=== PATIENT | female | born 2000 ===

== ENCOUNTER 2024-04-13 10:38 | Emergency (ER) | payer OTHER ==
[2024-04-13] MEDS ORDERED: KETOROLAC 15 MG/ML 1 ML VIAL ONE (12:07)
[2024-04-13] MEDS ORDERED: HYDROCORTISONE 1% CREAM 30 GM TUBE TOPICAL ONE (13:24)
== END 2024-04-13 13:25 | disposition home or self-care (01) ==
LOC: EC 10:38
DX: L30.9 Dermatitis, unspecified (principal)
CPT/HCPCS: 99282

== ENCOUNTER 2024-09-14 22:11 | Emergency (ER) | payer OTHER ==
[2024-09-14 22:23] VITALS: BP 134/74; PULSE 74; RESP 16; TEMP 98
[2024-09-14] MEDS ORDERED: cefTRIAXone 1,000 MG VIAL (IM USE) IM STA (22:55)
--- NOTE | 2024-09-14 23:01 | ED ---
Female Urogenital HPI - General Chief complaint: Urogenital Stated complaint: Abd Pain Time Seen by Provider: 09/14/24 22:31 Source: patient, RN notes reviewed Mode of arrival: ambulatory Limitations: no limitations - History of Present Illness Initial comments: 23-year-old female presents for STD testing. Admits to new sexual partner recently. States today she noticed a foul vaginal odor and a thin white discharge. Denies dysuria, frequency, urgency, suprapubic pain. Denies abdominal pain or fevers. Tolerating orals well. Last menstrual period 08/21/2024. Last Menstrual Period: 08/21/24 - Related Data Allergies Allergy/AdvReac Type Severity Reaction Status Date / Time latex Allergy Rash/Hives Verified 09/14/24 22:20 Review of Systems ROS Statement: Those systems with pertinent positive or pertinent negative responses have been documented in the HPI. ROS Other: All systems not noted in ROS Statement are negative. Past Medical History Past Medical History: No Reported History History of Any Multi-Drug Resistant Organisms: None Reported Past Surgical History: No Surgical Hx Reported Past Psychological History: No Psychological Hx Reported Smoking Status: Never smoker Past Alcohol Use History: None Reported Past Drug Use History: None Reported General Exam Limitations: no limitations General appearance: alert, in no apparent distress Head exam: Present: atraumatic, normocephalic, normal inspection GI/Abdominal exam: Present: soft, normal bowel sounds. Absent: distended, tenderness, guarding, rebound, rigid Back exam: Absent: CVA tenderness (R), CVA tenderness (L) Neurological exam: Present: alert, oriented X3 Psychiatric exam: Present: normal affect, normal mood Skin exam: Present: warm, dry, intact, normal color. Absent: rash Course Vital Signs 09/14/24 22:20 Temperature 98.0 F Pulse Rate 74 Respiratory 16 Rate Blood Pressure 134/74 O2 Sat by Pulse 100 Oximetry Medical Decision Making - Medical Decision Making Was pt. sent in by a medical professional or institution (VICKY Medeiros, W[employer]ING [employer]ACHINE [employer]PER[employer]ISTANCE, urgent care, hospital, or half-way...) When possible be specific @ -No Did you speak to anyone other than the patient for history (EMS, parent, family, police, friend...)? What history was obtained from this source @ -No Did you review nursing and triage notes (agree or disagree)? Why? @ -I reviewed and agree with nursing and triage notes Were old charts reviewed (outside hosp., previous admission, EMS record, old EKG, old radiological studies, urgent care reports/EKG's, half-way records)? Report findings @ -No old charts were reviewed Differential Diagnosis (chest pain, altered mental status, abdominal pain women, abdominal pain men, vaginal bleeding, weakness, fever, dyspnea, syncope, headache, dizziness, GI bleed, back pain, seizure, CVA, palpatations, mental health, musculoskeletal)? @ -STD, BV bacterial vaginosis, vaginal candidiasis EKG interpreted by me (3pts min.). @ -None X-rays interpreted by me (1pt min.). @ -None done CT interpreted by me (1pt min.). @ -None done U/S interpreted by me (1pt. min.). @ -None done What testing was considered but not performed or refused? (CT, X-rays, U/S, labs)? Why? @ -Patient eloped before urinalysis and urine returned What meds were considered but not given or refused? Why? @ -Eloped before Rocephin was given Did you discuss the management of the patient with other professionals (professionals i.e. , PA, W[employer]ING MACHINE OPERATOR [employer]ISTANCE, lab, RT, psych nurse, licensed clinical social worker, dial brusher, teacher, customs and immigration officer, case picker)? Give summary @ -No Was smoking cessation discussed for >3mins.? @ -No Was critical care preformed (if so, how long)? @ -No Were there social determinants of health that impacted care today? How? (Homelessness, low income, unemployed, alcoholism, drug addiction, transportation, low edu. Level, literacy, decrease access to med. care, detention, rehab)? @ -No Was there de-escalation of care discussed even if they declined (Discuss DNR or withdrawal of care, Hospice)? DNR status @ -No What co-morbidities impacted this encounter? (DM, HTN, Smoking, COPD, CAD, Cancer, CVA, ARF, Chemo, Hep., AIDS, mental health diagnosis, sleep apnea, morbid obesity)? @ -None Was patient admitted / discharged? Hospital course, mention meds given and route, prescriptions, significant lab abnormalities, going to OR and other pertinent info. @ -Discharge. This is a 23-year-old female presenting for STD testing. Admits to new sexual partner and vaginal discharge/odor x 1 day. Last menstrual period August 21. No red flag symptoms. Declines pelvic examination. Patient opts to empirically treat for STDs today and send culture for chlamydia/gonorrhea with close follow-up with PCP/gynecology. Patient eloped from ER prior to urinalysis and urine results. Urine chlamydia and gonorrhea sent. I called patient who states she had to leave and she will follow-up outpatient. Urine returned positive. I attempted to call patient back however there was no answer and could not leave voicemail due to voicemail was not set up on patient's phone. Will not send empiric treatment due to . Case was discussed with the ED attending Dr. Sparrow Undiagnosed new problem with uncertain prognosis? @ -No Drug Therapy requiring intensive monitoring for toxicity (Heparin, Nitro, Insulin, Cardizem)? @ -No Were any procedures done? @ -No Diagnosis/symptom? @ -, STD testing Acute, or Chronic, or Acute on Chronic? @ -Acute Uncomplicated (without systemic symptoms) or Complicated (systemic symptoms)? @ -Uncomplicated Side effects of treatment? @ -No Exacerbation, Progression, or Severe Exacerbation? @ -No Poses a threat to life or bodily function? How? (Chest pain, [place], ID, pneumonia, PE, COPD, DKA, ARF, appy, cholecystitis, CVA, Diverticulitis, Homicidal, Suicidal, threat to staff... and all critical care pts) @ -Not at this time - Lab Data Lab Results 09/14/24 09/14/24 Range/Units 23:35 23:35 Urine Color Yellow Urine Appearance Clear (Clear) Urine pH 6.0 (5.0-8.0) Ur Specific [place] 1.030 (1.001-1.035) Urine Protein Negative (Negative) Urine Glucose (UA) 1+ H (Negative) Urine Ketones Trace H (Negative) Urine Blood Negative (Negative) Urine Nitrite Negative (Negative) Urine Bilirubin Negative (Negative) Urine Urobilinogen 2.0 (<2.0) mg/dL Ur Leukocyte Esterase Negative (Negative) Urine HCG, Qual Detected (Not Detectd) Disposition Clinical Impression: , Vaginal discharge Disposition: HOME SELF-CARE Condition: Stable Is patient prescribed a controlled substance at d/c from ED?: No Referrals: None,Stated [Primary Care Provider] - 1-2 days Time of Disposition: 01:33
[2024-09-15 00:21] LABS: Appearance,Urine Clear (Clear); Bilirubin,Urine Negative (Negative); Blood,Urine Negative (Negative); Color,Urine Yellow; Glucose,Urine (UA) 1+ (Negative); Ketones,Urine Trace (Negative); Leukocyte Esterase,Urine Negative (Negative); Nitrite,Urine Negative (Negative); Protein,Urine Negative (Negative)
== END 2024-09-15 00:17 | disposition home or self-care (01) ==
LOC: EC 22:11
DX: O99.891 Other specified diseases and conditions complicating pregnancy (principal); N89.8 Other specified noninflammatory disorders of vagina; Z91.040 Latex allergy status; Z3A.00 Weeks of gestation of pregnancy not specified
CPT/HCPCS: 81003; 81025; 87491; 87591; 99283